=== PATIENT | male | born 1985 | race Two or more races ===

== ENCOUNTER 2016-07-06 12:04 | Emergency (ER) | payer OTHER ==
[~2016-07-06] VITALS: Ht 177.8 cm; Wt 132.9 kg
[2016-07-06 12:18] VITALS: BP 192/107
--- NOTE | 2016-07-06 12:27 | PHYS DOC ---
Adult General Chief Complaint Chief Complaint: FOOT INJURY PAIN [facility] HPI Patient is a 31 year old male who presents emergency Department today with complaint of right foot pain secondary to having his foot caught under a forklift at work within the past hour. Patient actually describes more of a hyper dorsiflexion-type injury. He denies a crush injury with this. He denies any previous history of injuries to his right foot any history of bone forming disorders. Review of Systems Review of Systems Constitutional: Denies fever or chills [] Eyes: Denies change in visual acuity, redness, or eye pain [] HENT: Denies nasal congestion or sore throat [] Respiratory: Denies cough or shortness of breath [] Cardiovascular: No additional information not addressed in HPI [] GI: Denies abdominal pain, nausea, vomiting, bloody stools or diarrhea [] : Denies dysuria or hematuria [] Musculoskeletal: Denies back pain or joint pain [] Integument: Denies rash or skin lesions [] Neurologic: Denies headache, focal weakness or sensory changes [] Endocrine: Denies polyuria or polydipsia [] Current Medications Current Medications Current Medications Medications (Trade) Dose Ordered Sig/Mejia Start Time Stop Time Status Last Admin Dose Admin Acetaminophen/ Hydrocodone Bitart (Lortab 5/325) 1 tab 1X ONCE 07/06/16 13:00 07/06/16 13:01 DC 07/06/16 12:33 1 TAB Allergies Allergies Allergies Coded Allergies Type Severity Reaction Last Updated Verified No Known Drug Allergies 07/06/16 No Physical Exam Physical Exam Constitutional: Well developed, well nourished, mild distress, non-toxic appearance. [] HENT: Normocephalic, atraumatic, bilateral external ears normal, oropharynx moist, no oral exudates, nose normal. [] Eyes: PERRLA, EOMI, conjunctiva normal, no discharge. [] Neck: Normal range of motion, no tenderness, supple, no stridor. [] Cardiovascular:Heart rate regular rhythm, no murmur [] Lungs & Thorax: Bilateral breath sounds clear to auscultation [] Abdomen: Bowel sounds normal, soft, no tenderness, no masses, no pulsatile masses. [] Skin: Warm, dry, no erythema, no rash. [] Back: No tenderness, no CVA tenderness. [] Extremities: Right knee, lower leg and ankle are normal in appearance and nontender palpation. Patient has mild swelling to the dorsum of his foot overlying the first, second and third metatarsals. There is point tenderness in these areas of well. There is no palpable defect, deformity, instability or crepitus. Patient's toes are normal in appearance and nontender palpation. There neurovascularly intact. Neurologic: Alert and oriented X 3, normal motor function, normal sensory function, no focal deficits noted. [] Psychologic: Affect normal, judgement normal, mood normal. [] Current Patient Data Vital Signs Vital Signs Date Time Temp Pulse Resp B/P Pulse Ox O2 Delivery O2 Flow Rate FiO2 07/06/16 12:33 Room Air 07/06/16 12:18 98.2 83 18 94 98.2 EKG EKG [] Radiology/Procedures Radiology/Procedures [[facility] [address] [place] [address] IMAGING REPORT Signed PATIENT: NICANOR CAN ACCOUNT: [id number] : 1985 LOCATION: ER AGE: 31 SEX: M EXAM STATUS: REG ER ORD. PHYSICIAN: TOM NARAYANAN REASON: crush injury from fork lift accident. Pain 1st metatarsal area. PROCEDURE: FOOT RIGHT 3V Right foot, 3 views, 07/06/2016: History: Crush injury, forklift accident. No fracture or dislocation is identified. There is mild subcutaneous edema about the foot. IMPRESSION: No acute bony abnormality is detected. DICTATED and SIGNED BY: DALILA LEVI MD DATE: 07/06/16 1258 CC: TOM NARAYANAN; NO PCP; NON,STAFF ~ ] Course & Med Decision Making Course & Med Decision Making Patient's right foot was wrapped with an Chris wrap and he was fitted with a postop shoe. Patient was also fitted for crutches and given instructions on how to use them. Workman comp nurse comes emergency room today for substance testing /evaluation. Patient had an uneventful stay here in the emergency department and was discharged in stable condition. Dragon Disclaimer Dragon Disclaimer This electronic medical record was generated, in whole or in part, using a voice recognition dictation system. Departure Departure Impression: Primary Impression: Sprain of right foot Disposition: HOME, SELF-CARE Condition: GOOD Referrals: SULEIMAN MACHADO (PCP) Patient Instructions: Crutch Use, [id number], Foot Sprain-Brief Additional Instructions: 1. Take the medication as prescribed. 2. Review the discharge instructions provided for self-care and reasons to return to the emergency department. 3. Follow-up with occupational health provider within the next 3-4 days. Scripts Hydrocodone/Apap 5-325 ([place] 5-325 Tablet)1 Each Tablet1 Tab PO PRN Q6HRS PRN PAIN #15 TAB Prov:TOM NARAYANAN 07/06/16 TOM NARAYANAN July 06, 2016 12:27
[2016-07-06] MEDS ORDERED: HYDROcodone/APAP 5/325MG 1 TAB TABLET PO ONE (13:00)
--- NOTE | 2016-07-06 13:01 | RAD ---
Right foot, 3 views, 07/06/2016: History: Crush injury, forklift accident. No fracture or dislocation is identified. There is mild subcutaneous edema about the foot. IMPRESSION: No acute bony abnormality is detected.
[2016-07-06] MEDS ORDERED: HYDR-971 PO (13:13)
== END 2016-07-06 13:55 | disposition home or self-care (01) ==
LOC: ER 12:04
DX: S93.601A Unspecified sprain of right foot, initial encounter (principal); W31.89XA Contact with other specified machinery, initial encounter; Y93.89 Activity, other specified; Y99.0 Civilian activity done for income or pay; Y92.69 Other specified industrial and construction area as the place of occurrence of the external cause
CPT/HCPCS: 73630; 99284-25